=== PATIENT | male | born 1960 | race African-American/Black ===

== ENCOUNTER 2017-02-04 10:18 | Outpatient (CLI) | payer OTHER | END 2017-02-04 19:07 | disposition home or self-care (01) | LOC: RAD 10:18 | DX: M05.79 Rheumatoid arthritis with rheumatoid factor of multiple sites without organ or systems involvement (principal); Z68.32 Body mass index [BMI] 32.0-32.9, adult; M17.0 Bilateral primary osteoarthritis of knee; Z79.899 Other long term (current) drug therapy; R76.11 Nonspecific reaction to tuberculin skin test without active tuberculosis; R94.5 Abnormal results of liver function studies; Z51.81 Encounter for therapeutic drug level monitoring ==

== ENCOUNTER 2018-08-31 10:28 | Outpatient (CLI) | payer OTHER | END 2018-08-31 23:46 | disposition home or self-care (01) | LOC: RAD 10:28 | DX: M06.09 Rheumatoid arthritis without rheumatoid factor, multiple sites (principal); M85.89 Other specified disorders of bone density and structure, multiple sites; R94.5 Abnormal results of liver function studies; Z79.52 Long term (current) use of systemic steroids ==

== ENCOUNTER 2018-12-14 08:38 | Outpatient (CLI) | payer OTHER | END 2018-12-14 20:16 | disposition home or self-care (01) | LOC: RAD 08:38 | DX: M85.89 Other specified disorders of bone density and structure, multiple sites (principal) ==

== ENCOUNTER 2022-07-24 08:39 | Emergency (ER) | payer OTHER ==
[~2022-07-24] VITALS: Ht 167.6 cm; Wt 71.2 kg
[2022-07-24 08:40] VITALS: TEMP 98.5
[2022-07-24 10:32] VITALS: BP 141/89
== END 2022-07-24 10:32 | disposition home or self-care (01) ==
LOC: ED 08:39
PROC: 0HQLXZZ Repair Left Lower Leg Skin, External Approach (ICD-10-PCS; principal; 2022-07-24)
DX: S81.012A Laceration without foreign body, left knee, initial encounter (principal); W01.0XXA Fall on same level from slipping, tripping and stumbling without subsequent striking against object, initial encounter
CPT/HCPCS: 90471; 90715; 99283

== ENCOUNTER 2022-08-02 13:28 | Emergency (ER) | payer OTHER ==
[~2022-08-02] VITALS: Ht 167.6 cm; Wt 71.2 kg
[2022-08-02 13:50] VITALS: BP 124/80; TEMP 98.4
== END 2022-08-02 14:52 | disposition home or self-care (01) ==
LOC: ED 13:28
DX: Z48.02 Encounter for removal of sutures (principal)

== ENCOUNTER 2022-08-09 14:06 | Emergency (ER) | payer OTHER ==
[~2022-08-09] VITALS: Ht 167.6 cm; Wt 71.2 kg
[2022-08-09 14:10] VITALS: BP 126/78; TEMP 98
== END 2022-08-09 15:00 | disposition home or self-care (01) ==
LOC: ED 14:06
DX: Z48.02 Encounter for removal of sutures (principal)